=== PATIENT | male | born 1970 | race Caucasian/White ===

== ENCOUNTER → 2016-11-18 | Outpatient (CLI) | payer OTHER ==
[~2016-11-18] MED LIST: IBUP-1050 PO; MULT-513 PO; OXYC-57 PO; PHENTERMINE HCL PO
--- NOTE | 2016-11-19 06:40 | PAP/PSG TECHNICIAN REPORT ---
[facility] Gas Appliance Adjuster Polysomnogram Report Study name: None Report date: 11/19/2016 Study date: 11/18/2016 Referring Physician: DR. DE JESUS Name: HENRY PRAKASH Interpreting Physician: Parmjit North M.D. Date of : 1970 Gas Appliance Adjuster: Yrn Morrison [facility]. Sex: Male Age: 45 StudyType: PSG Weight: 309 lbs 18 inches Height: 45 years, Height 6' 1" Neck Circum: BMI: 40.76 Medications: NONE LISTED Patient History PATIENT HAS HISTORY OF SEVERE FATIGUE, LOUD SNORING AND WITNESSED APNEAS. HE HAS GAINED AROUND 50LBS OVER THE OVER THE LAST 5 YEARS. HE USUALLY ONLY SLEEPS 4-5 HOURS A NIGHT. HE IS HERE TODAY FOR AN EVALUATION OF LIZZIE. ESS = 9 RM 6 Parameters Monitored NPSG: E1-M2, E2-M1, Fp1-M2, Fp2-M1, F3-M2, F4-M2, F4-M1, C3-M2, C4-M2, C4-M1, O1-M2, O2-M2, O2-M1, T3-M2, T4-M1, P3-M2, P4-M1, CHIN1, CHIN2, HR, EKG, Legs, PFLOW, SNOR, FLOW, CFLOW, Tidal Volume, THOR, ABDO, SpO2, PLTH, CPRESS, ETCO2 Wave, ETCO2, pH Sleep Architecture Sleep Stages Time at Lights Off 10:41:15 PM STAGES Time (min.) TST (%) Time at Lights On 5:54:15 AM Wake 37.5 -- Total Recording Time (TRT) 433.50 min. N1 21.0 5 Total Sleep Period (TSP) 428.5 min. N2 218.0 55 Total Sleep Time (TST) 395.5min. N3 79.0 20 Awake Time 37.5 min. REM 77.5 20 Wake after Sleep Onset 33.0 min. Sleep Efficiency (SE) 91 % Sleep Onset Latency (DULCE) 4.5 min. Number of Stage 1 Shifts None Awakenings 16 Stage Changes 88 Number of REM periods 10 REM 77.5 20 REM Latency 5.0 min. NREM 318.0 80 Body Position Analysis Supine Right Left Side Prone Vertical Total Sleep Time (min.) 185.2 79.9 137.2 217.13 0.0 0.0 Total Sleep Time (%) 45% 20% 35% 55 0% N/A% Total Sleep Time REM (min.) 20.5 0.0 57.0 None 0.0 0.0 Total Sleep Time NREM (min.) 157.9 79.9 80.2 None 0.0 0.0 Intermittent Wake (min.) 6.8 19.1 11.6 None 0.0 0.0 Total Sleep Period (%) 43% None None None None None Arousals Myoclonus (PLM) * Events Count Index Events Count Index Spontaneous 38 6 Events Awake (PLMW) 42 67.2 Respiratory 20 3.0 Events Asleep w/ Arousal (PLMA) 17 2.6 PLM 17 3 Events Asleep w/o Arousal (PLMS) 123 18.7 Snoring 8 1 Total Asleep 140 21.2 Total 83 13 Total 182 25 Respiratory Analysis * CA OA MA CH H RERA Total Count 0 1 0 0 132 3 133 Index 0.0 0.2 0.0 0 20.0 0 20.6 Mean Duration 0.0 17.4 0.0 0.00 23.8 17.5 23.6 Longest Duration 0.0 17.4 0.0 0.00 0.0 23.1 157.0 Respiratory Event Summary Total Supine ~Supine Right Left Prone REM NREM Apneas Count 1 1 0 0 0 N/A 1 0 Index 0.2 0 0 0.0 0.0 N/A 1 0 Hypopneas (4% Desat) Count 132 65 67 13 54 N/A 62 70 Index 20.0 21.9 19 9.8 23.6 N/A 48.0 13.2 Apneas & All Hypopneas Count 133 66 67 13 54 N/A 63 70 Index 20.2 22 19 10 24 N/A 48.8 13.2 Respiratory Events (Breaker Off+All Hyp+RERA) Count 133 66 70 14 56 N/A 63 70 Index 20.6 22 19 10.5 24.5 N/A 49.5 13.6 Respiratory Related Arousal Count 20 66 8 2 6 N/A 10 10 Index 3.0 4 2 2 3 N/A 8 2 Snoring Analysis Supine Right Left Prone REM NREM Total Snore duration 7.3 min Snores count 115 101 111 N/A 51 276 327 Snore mean duration 1.3 Sec Snores index 39 76 49 N/A 39.5 52.1 49.6 TST with snoring (%) 1.9% Desaturation Event Summary: Minimum %SpO2 Event Count Mean/Min/Max Duration(sec.) Desaturation Index % Time In Bed > 90 115 30.8 / 6.0 / 63.6 44.2 36.8 86 - 90 56 27.4 / 8.8 / 80.3 13.6 58.4 81 - 85 4 23.6 / 8.3 / 45.3 15.3 3.7 76 - 80 0 N/A 0.0 0.9 71 - 75 0 N/A 0.0 0.2 66 - 70 0 N/A 0.0 0.0 61 - 65 0 N/A 0.0 0.0 56 - 60 0 N/A 0.0 0.0 51 - 55 0 N/A 0.0 0.0 < 50 0 N/A 0.0 0.0 Total REM NREM Awake <50% 0.0 min. 0.0 min. 0.0 min. 0.0 min. 51 - 60% 0.0 min. 0.0 min. 0.0 min. 0.0 min. 61 - 70% 0.0 min. 0.0 min. 0.0 min. 0.0 min. 71 - 80% 4.9 min. 4.5 min. 0.1 min. 0.3 min. 81 - 90% 263.0 min. 48.5 min. 204.0 min. 10.4 min. 91 - 100% 155.9 min. 24.1 min. 111.7 min. 20.2 min. Average 90 88 90 91 Minimum SpO2 73 73 74 74 Desaturation Event Index 20.4 49.5 14.5 12.8 # Desat. Events below 89% 98 57 39 2 Time(%) with Saturation below 89% 17.8 9.1 8.1 0.6 Time(min.) with Saturation below 89% 75.3 38.5 34.2 2.7 Time (mins) REM (mins) NREM (mins) % of TST SpO2 Below 90% 129 62 N67 41.0 SpO2 Below 88% 47 0 0 10 Heart Rate Analysis Min (bpm) Max (bpm) Average (bpm) Awake 44 161 68 NREM 34 95 60 REM 45 90 58 Overall 34 95 59 Supplemental O2 Values Minimum O2 level: None Value Start Time End Time Gas Appliance Adjuster Comments Mr. Prakash slept in the right, left and supine positions. PVC's noted. Leg movements noted. No bruxism noted. Snoring was noted and scored as a 3 on a scale of 1 through 5. (0=no snoring, 5=snoring loud enough to be heard through a closed door or down the [address] way) Mr. Prakash awoke to use the restroom 1 time during the night. Mr. Prakash stated I did not sleep as well as I do when I am in my own bed. The final report will be interpreted and signed by a sleep physician. The completed physician report will then be placed in the patient medical record. Therapy (cm H2O) 0 TIB (min.) 433.0 TST (min.) 395.5 Sleep Onset (min.) 4.5 REM Onset From Sleep (min.) 5.0 Sleep Efficiency % 91 Wakefulness (%) 9 Wakefulness (min.) 37.5 NREM 1 (%) 5 NREM 1 (min.) 21.0 NREM 2 (%) 55 NREM 2 (min.) 218.0 NREM 3 (%) 20 NREM 3 (min.) 79.0 REM (%) 20 REM (min.) 77.5 # Arousals 83 Arousal Index 13 # Snore 327 Snore Index 49.6 AHI 20.2 AHI Supine 22 AHI Non-Supine 19 NREM AHI 13.2 REM AHI 48.8 RDI 20.6 # Obstructive Apnea 1 # Central Apnea 0 # Mixed Apnea 0 # Hypopneas 132 RERAs 3 Total Respiratory Events 138 Time Below SpO2 89% (min.) 72.7 Mean NREM SpO2 (%) 90 Mean REM SpO2 (%) 88 Mean Sleep SpO2 (%) 90 Min NREM SpO2 (%) 74 Min REM SpO2 (%) 73 Position Supine (min.) 185.2 Position Non-supine (min.) 217.1 LM Index Sleep 21.2 LM Index NREM 17.7 LM Index REM 35.6 Mean Heart Rate (bpm) 59 Min Heart Rate (bpm) 34
--- NOTE | 2016-11-24 15:48 | POLYSOMNOGRAPH REPORT ---
CLINICAL DATA: A 45-year-old with a BMI of 40.[address] Costa and Dr. Wood for evaluation of possible sleep apnea. The patient has had severe fatigue with witnessed apneic episodes. He has gained 50 pounds over the last 5 years. SLEEP ARCHITECTURE: Total sleep period was 428.5 minutes. Total sleep time was 395.5 minutes, divided between 318 minutes of non-REM sleep and 77.5 minutes of REM sleep. Sleep onset latency was 4.5 minutes. REM latency was markedly foreshortened at 5 minutes. Sleep efficiency was 91%. Wake after sleep onset was 33 minutes. Sleep consisted of stage N1 5%, N2 55%, N3 20%, REM 20%. AROUSAL DATA: 83 arousals were recorded for an index of 13 per hour. PLM DATA: 140 limb movements during sleep were noted for an index of 21.2 per hour with arousal index of 2.6 per hour. RESPIRATORY DATA: Moderate sleep apnea was documented. The AHI was 28.2. There was 1 obstructive apneic episode, 17.4 seconds in duration. There were 132 hypopneic episodes. The mean duration of hypopnea was 23.8 seconds. OXIMETRY DATA: Nocturnal hypoxemia was seen. Oxygen susan of 73% during REM. The mean saturation was 90%. Time below 88% was 47 minutes. EKG: Heart rates ranged from 34-95 beats per minute. PVCs were noted. CERTIFIED SURGICAL TECH/FIRST ASSISTANT'S COMMENTS: The patient slept in the right, left, and supine positions. Snoring was moderate to severe rated 4 on a scale of 1-5. IMPRESSION: Moderate sleep apnea/hypopnea with an AHI of 28.2 with nocturnal hypoxemia. RECOMMENDATIONS: The patient may benefit from a repeat sleep study with CPAP or use of auto CPAP. Clinical correlation is needed. [facility]
== END ==
LOC: C.NEUR 20:00
PROVIDERS: ATTEND Internal Medicine Pulmonary Disease
DX: G47.30 Sleep apnea, unspecified (principal)

== ENCOUNTER → 2017-02-06 | Outpatient (CLI) | payer OTHER ==
[~2017-02-06] MED LIST changes: -OXYC-57 PO
== END | disposition home or self-care (01) ==
LOC: C.PATHSPEC 17:19
PROVIDERS: ATTEND Orthopaedic Surgery
DX: L72.0 Epidermal cyst (principal)

== ENCOUNTER 2017-04-17 08:16 | Emergency (ER) | payer OTHER ==
[~2017-04-17] VITALS: Ht 185.4 cm; Wt 135.5 kg
[~2017-04-17 08:16] MED LIST changes: -PHENTERMINE HCL PO
[2017-04-17 08:23] VITALS: TEMP 36.6; Ht 185.4 cm; Wt 135.5 kg
[2017-04-17] MEDS ORDERED: SODIUM CHLORIDE 0.9% 1000ML 2,000 ML IV STA (09:00)
[2017-04-17] MEDS ORDERED: PHENTERMINE HCL PO (09:01)
--- NOTE | 2017-04-17 09:27 | DIAGNOSTIC IMAGING REPORT ---
CHEST ONE VIEW PORTABLE CLINICAL HISTORY: tachy cardiac arrhythmia COMPARISON STUDY: 01/12/2016 FINDINGS: The bones soft tissues and hemidiaphragms are normal. The cardiomediastinal silhouette is normal. The lungs are clear. The pulmonary vasculature is normal. IMPRESSION: Negative chest. The above report was generated using voice recognition software. It may contain grammatical, syntax or spelling errors. Electronically signed by: Alvarez Paula M.D. 04/17/2017 9:26 AM Dictated Date/Time: 04/17/2017 9:20 AM
[2017-04-17 09:31] LABS: BASO % 0.2 %; BASO ABS # 0.02 K/uL (0-0.2); COMPLETE YES; EOS % 0.9 %; HEMATOCRIT 45.7 % (42-52); IG% 0.3 %; LYMPH % 24.8 %; LYMPH ABS # 2.61 K/uL (1.2-3.4); MEAN CELL VOLUME 86.2 fL (80-100); MEAN CORPUSCULAR HEMOGLOBIN 30.2 pg (25-34); MEAN PLATELET VOLUME 9.8 fL (7.4-10.4); MONO % 8.9 %; NEUT % 64.9 %; PLATELET COUNT 248 K/uL (130-400); WHITE BLOOD COUNT 10.52 K/uL (4.8-10.8)
[2017-04-17 09:53] LABS: BUN/CREATININE RATIO 11.8 (10-20); CALCIUM 9.3 mg/dl (8.5-10.1); CREATININE 0.91 mg/dl (0.60-1.40); POTASSIUM 3.3 mmol/L (3.5-5.1)
[2017-04-17 10:18] LABS: URINE APPEARANCE CLEAR (CLEAR); URINE BILIRUBIN NEG (NEG); URINE COLOR YELLOW; URINE NITRITE NEG (NEG); URINE PH 6.5 (4.5-7.5); UROBILINOGEN NEG (NEG); ZZUR CULT IF INDIC CLEAN CATCH NO
[2017-04-17 10:30] LABS: MANUAL MICROSCOPIC REQUIRED? YES; REVIEW REQ? NO
[2017-04-17 10:54] LABS: URINE BACTERIA NEG (NEG); URINE RBC 0-4 /hpf (0-4); URINE WBC 0 /hpf (0-5)
[2017-04-17 10:55] LABS: BENZODIAZEPINE, URINE NEG (NEG); COCAINE,URINE NEG (NEG); PHENCYCLIDINE, URINE NEG (NEG)
[2017-04-17 12:21] VITALS: BP 140/121; PULSE 80; O2SAT 98
--- NOTE | 2017-04-17 13:53 | EMERGENCY ROOM VISIT NOTE ---
History Report prepared by Mikki: Gunnar Mak Under the Supervision of: Dr. Roly Draper D.O. First contact with patient: 08:20 Chief Complaint: OTHER COMPLAINT Stated Complaint: ILLNESS History of Present Illness The patient is a 46 year old male who presents to the Emergency Room sent up from [facility] earlier this morning. The patient states that he has been taking a lot of pain medications for the past year, though he stopped taking them about a month ago, and for the past week or two he has been taking a lot of phentermine, and he is smoking a lot of marijuana every day. He states that he last time he smoke was last night around 2300, and he has taken 2 phentermine in the past 12 hours. He states that he has not slept in the past three days. The patient states that he had a headache yesterday, though he does not have any currently. He denies any alcohol use. The patient states that he started taking medication when he hurt his leg, though once his prescription ran out he would buy it from other people. Additionally, he states that he would steal money from his job to pay for these drugs leading him to come in for evaluation. Pt denies, change in vision, fevers, chest pain, shortness of breath, nausea, vomiting, diarrhea, pain with urination, and melena. Source of History: patient Onset: earlier this morning Position: other (global) Quality: other (sent from [facility]) Timing: constant Associated Symptoms: No headache Note: Associated symptoms: Lack of sleep Review of Systems See HPI for pertinent positives & negatives. A total of 10 systems reviewed and were otherwise negative. Past Medical & Surgical Medical Problems: (1) Fam hx-ischem heart disease (2) Sciatica Family History Fam hx-ischem heart disease [place] (myocardial infarction) Social History Smoking Status: Never Smoker Marital Status: in relationship Occupation Status: employed Current/Historical Medications Scheduled [Phentermine Hcl], 1 DOSE PO TID Allergies Coded Allergies: No Known Allergies (Unverified , UNKNOWN, 01/12/16) Physical Exam Vital Signs Date Time Temp Pulse Resp B/P (MAP) Pulse Ox O2 Delivery O2 Flow Rate FiO2 04/17/17 12:21 80 18 140/121 98 04/17/17 11:32 97 18 159/111 98 Room Air 04/17/17 09:31 107 20 139/92 96 Room Air 04/17/17 09:26 107 04/17/17 08:23 36.6 119 18 150/101 94 Room Air Physical Exam GENERAL: sitting up in bed, anxious, no distress, non-toxic EYE EXAM: normal conjunctiva, PERRL and EOM's grossly intact OROPHARYNX: no exudate, no erythema, lips, buccal mucosa, and tongue normal and mucous membranes are moist NECK: supple, no nuchal rigidity, no adenopathy, non-tender LUNGS: Clear to auscultation. Normal chest wall mechanics HEART: Tachycardic, no murmurs, S1 normal and S2 normal ABDOMEN: abdomen soft, non-tender, normo-active bowel sounds, no masses, no rebound or guarding. BACK: Back is symmetrical on inspection and there is no deformity, no midline tenderness, no CVA tenderness. SKIN: no rashes and no bruising UPPER EXTREMITIES: upper extremities are grossly normal. LOWER EXTREMITIES: No pitting edema. NEURO EXAM: Normal sensorium, cranial nerves II-XII grossly intact, normal speech, no gross weakness of arms, no gross weakness of legs. Gross sensation intact. Medical Decision & Procedures ER Provider Diagnostic Interpretation: Radiology results as stated below per my review and the radiologist's interpretation: CHEST ONE VIEW PORTABLE CLINICAL HISTORY: tachy cardiac arrhythmia COMPARISON STUDY: 01/12/2016 FINDINGS: The bones soft tissues and hemidiaphragms are normal. The cardiomediastinal silhouette is normal. The lungs are clear. The pulmonary vasculature is normal. IMPRESSION: Negative chest. The above report was generated using voice recognition software. It may contain grammatical, syntax or spelling errors. Electronically signed by: Alvarez Paula M.D. 04/17/2017 9:26 AM Dictated Date/Time: 04/17/2017 9:20 AM Laboratory Results 04/17/17 09:10 Red Blood Count 5.30, Mean Corpuscular Volume 86.2, Mean Corpuscular Hemoglobin 30.2, Mean Corpuscular Hemoglobin Concent 35.0, Mean Platelet Volume 9.8, Neutrophils (%) (Auto) 64.9, Lymphocytes (%) (Auto) 24.8, Monocytes (%) (Auto) 8.9, Eosinophils (%) (Auto) 0.9, Basophils (%) (Auto) 0.2, Neutrophils # (Auto) 6.83, Lymphocytes # (Auto) 2.61, Monocytes # (Auto) 0.94, Eosinophils # (Auto) 0.09, Basophils # (Auto) 0.02 04/17/17 09:10 Test 04/17/17 09:10 04/17/17 09:25 White Blood Count 10.52 K/uL (4.8-10.8) Red Blood Count 5.30 M/uL (4.7-6.1) Hemoglobin 16.0 g/dL (14.0-18.0) Hematocrit 45.7 % (42-52) Mean Corpuscular Volume 86.2 fL (80-100) Mean Corpuscular Hemoglobin 30.2 pg (25-34) Mean Corpuscular Hemoglobin Concent 35.0 g/dl (32-36) Platelet Count 248 K/uL (130-400) Mean Platelet Volume 9.8 fL (7.4-10.4) Neutrophils (%) (Auto) 64.9 % Lymphocytes (%) (Auto) 24.8 % Monocytes (%) (Auto) 8.9 % Eosinophils (%) (Auto) 0.9 % Basophils (%) (Auto) 0.2 % Neutrophils # (Auto) 6.83 K/uL (1.4-6.5) Lymphocytes # (Auto) 2.61 K/uL (1.2-3.4) Monocytes # (Auto) 0.94 K/uL (0.11-0.59) Eosinophils # (Auto) 0.09 K/uL (0-0.5) Basophils # (Auto) 0.02 K/uL (0-0.2) RDW Standard Deviation 41.4 fL (36.4-46.3) RDW Coefficient of Variation 13.0 % (11.5-14.5) Immature Granulocyte % (Auto) 0.3 % Immature Granulocyte # (Auto) 0.03 K/uL (0.00-0.02) Anion Gap 10.0 mmol/L (3-11) Est Creatinine Clear Calc Drug Dose 145.0 ml/min Estimated GFR () 115.9 Estimated GFR (Non- 100.0 BUN/Creatinine Ratio 11.8 (10-20) Calcium Level 9.3 mg/dl (8.5-10.1) Total Bilirubin 0.8 mg/dl (0.2-1) Direct Bilirubin 0.1 mg/dl (0-0.2) Aspartate Amino Transf (AST/SGOT) 33 U/L (15-37) Alanine Aminotransferase (ALT/SGPT) 51 U/L (12-78) Alkaline Phosphatase 117 U/L (45-117) Total Protein 7.5 gm/dl (6.4-8.2) Albumin 3.5 gm/dl (3.4-5.0) Lipase 76 U/L (73-393) Urine Color YELLOW Urine Appearance CLEAR (CLEAR) Urine pH 6.5 (4.5-7.5) Urine Specific [place] 1.010 (1.000-1.030) Urine Protein NEG (NEG) Urine Glucose (UA) NEG (NEG) Urine Ketones NEG (NEG) Urine Occult Blood NEG (NEG) Urine Nitrite NEG (NEG) Urine Bilirubin NEG (NEG) Urine Urobilinogen NEG (NEG) Urine Leukocyte Esterase NEG (NEG) Urine WBC (Auto) /hpf (0-5) Urine RBC (Auto) /hpf (0-4) Urine Hyaline Casts (Auto) /lpf (0-5) Urine Epithelial Cells (Auto) /lpf (0-5) Urine Bacteria (Auto) (NEG) Urine RBC 0-4 /hpf (0-4) Urine WBC 0 /hpf (0-5) Urine Epithelial Cells 0-5 /lpf (0-5) Urine Bacteria NEG (NEG) Urine Opiates Screen NEG (NEG) Urine Methadone, Qualitative NEG (NEG) Urine Barbiturates NEG (NEG) Urine Phencyclidine (PCP) Level NEG (NEG) Ur Amphetamine/Methamphetamine NEG (NEG) MDMA (Ecstasy) Screen NEG (NEG) Urine Benzodiazepines Screen NEG (NEG) Urine Cocaine Metabolite NEG (NEG) Urine Marijuana (THC) NEG (NEG) Laboratory results per my review. Medications Administered Medications (Trade) Dose Ordered Sig/Marci Route Start Time Stop Time Status Last Admin Dose Admin Sodium Chloride 2,000 ml @ 999 mls/hr Q2H1M STAT IV 04/17/17 09:00 04/17/17 11:00 DC 04/17/17 09:00 999 MLS/HR ECG Indication: other (illness) Rate (beats per minute): 103 Rhythm: sinus tachycardia Findings: no ectopy, other (Normal [place]) ED Course ED COURSE: Vital signs were reviewed and showed tachycardia and hypertension The patients medical record was reviewed The above diagnostic studies were performed and reviewed. ED treatments and interventions as stated above. 0853: The patient was evaluated in room A3. A complete history and physical examination was performed. 0900: Sodium Chloride 2000 ml @ 999 mls/hr IV 1211: I discussed the patient's case with [place] [employer], and they think that the patient should be fine with going home. 1215: Upon reevaluation, the patient is feeling well.I discussed my findings with the patient and he understands and agrees with the treatment plan. Based on the patients age, coexisting illnesses, exam and lab findings the decision to treat as an outpatient was made. The patient remained stable while under my care. The patient appeared well at the time of discharge. Medical Decision Differential diagnoses includes but is not limited to acute coronary syndrome, myocardial infarction, pericarditis, pulmonary embolus, aortic dissection, pneumonia, pneumothorax, musculoskeletal, shingles, esophageal. 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 Patient freely admits to previously using narcotics and now using and told mean and marijuana. No alcohol. Last used marijuana last night. He denies any complaints including chest pain, shortness breath or any stroke like symptoms. Exam is unremarkable. He was tachycardic. Fluids were given. CBC, BMP, LFTs, bilirubin and lipase were unremarkable with exception of a mild hypokalemia. Tox and UA were negative. Chest x-ray unremarkable. EKG was nondiagnostic. As patient was asymptomatic he is discharged follow-up with his PCP for hypertension and initially tachycardia which is likely secondary to the phentolamine. I did discuss this with poison control and they agreed with his care. Discussed with Pt concerning signs and symptoms to watch out for. Pt was instructed to follow up with their PCP and discussed with the patient their option to return to the ED at anytime for persistent or worsening symptoms. The appropriate anticipatory guidance and out- patient management, including indications for return to the emergency department , were explained at length to the patient and understood. Medication Reconcilliation Current Medication List: was personally reviewed by me Blood Pressure Screening Patient's blood pressure: Elevated blood pressure Blood pressure disposition: Referred to PCP Impression Primary Impression: Drug abuse Additional Impression: Hypertension Scribe Attestation The scribe's documentation has been prepared under my direction and personally reviewed by me in its entirety. I confirm that the note above accurately reflects all work, treatment, procedures, and medical decision making performed by me. Departure Information Dispostion Home / Self-Care Referrals Jason Wood M.D. (PCP) Forms HOME CARE DOCUMENTATION FORM, IMPORTANT VISIT INFORMATION, WORK / SCHOOL INSTRUCTIONS Patient Instructions Addiction Drug Abuse Tx, ED Drug Abuse General, [facility] Additional Instructions Please follow up with your primary care doctor or if you are a student, [facility] with in the next 24 hours. Any worsening of your symptoms, please return to the ED immediately. This includes any fevers greater than 100.4, worsening pain, chest pain, shortness breath, persistent nausea, vomiting, unable to eat or drink, or any other concerning signs or symptoms from your standpoint. You were found to have a blood pressure greater than 120 systolic over 90 diastolic. Due to the new Medicare guidelines, we are now recommending that you follow up with your primary care doctor in regards to this elevated blood pressure. Please stop taking narcotics and phentolamine. Problem Qualifiers Additional Impression: Hypertension Hypertension type: unspecified Qualified Codes: I10 - Essential (primary) hypertension
== END 2017-04-17 12:28 | disposition home or self-care (01) ==
LOC: C.EDB 08:17 → C.EDA 12:28
DX: F12.20 Cannabis dependence, uncomplicated (principal); I10 Essential (primary) hypertension; Z82.49 Family history of ischemic heart disease and other diseases of the circulatory system